=== PATIENT | female | born 1930 | race Caucasian/White ===

== ENCOUNTER 2020-06-22 07:51 | Inpatient (IN) | payer OTHER ==
[~2020-06-22] VITALS: Ht 165.1 cm; Wt 45.4 kg
[2020-06-22] MEDS ORDERED: ELIQUIS2.5 MG (08:23)
[2020-06-22] MEDS ORDERED: LANOXIN125 MCG (08:23)
[2020-06-22] MEDS ORDERED: ARICEPT10 MG (08:24)
[2020-06-22] MEDS ORDERED: LASIX20 MG (08:25)
[2020-06-22] MEDS ORDERED: VALSARTAN80 MG (08:25)
[2020-06-22] MEDS ORDERED: POTASSIUM CHLO20 ME1 (08:25)
[2020-06-22] MEDS ORDERED: HYDRALAZINE HCL25 MG (08:26)
[2020-06-22] MEDS ORDERED: TOPROL XL50 M1 (08:26)
[2020-06-22] MEDS ORDERED: FOLIC ACID0.8 M1 PO (08:26)
[2020-06-24] MEDS ORDERED: SENOKOT-S TABL1 EACH PO (16:12)
[2020-06-24] MEDS ORDERED: FUROSEMIDE20 MG PO (16:12)
[2020-06-24] MEDS ORDERED: OXYC1TAB9 PO (16:12)
[2020-06-24] MEDS ORDERED: LANOXIN125 MCG PO (16:12)
[2020-06-24] MEDS ORDERED: ARICEPT10 MG PO (16:12)
[2020-06-24] MEDS ORDERED: INTEGRA F CAPS1 EACH PO (16:12)
[2020-06-24] MEDS ORDERED: TOPROL XL50 M1 PO (16:12)
[2020-06-24] MEDS ORDERED: HYDRALAZINE HCL25 MG PO (16:12)
[2020-06-24] MEDS ORDERED: AMLODIPINE BESY10 MG PO (16:12)
[2020-06-24] MEDS ORDERED: ELIQUIS2.5 MG PO (16:12)
== END 2020-06-24 18:46 | DRG 470 ==
LOC: ER 07:51 → EDBD 15:29 → SURG 15:29 → SEC-K 15:29 → SURG 20:38
PROVIDERS: ADMIT Orthopaedic Surgery; ATTEND Orthopaedic Surgery
PROC: 0MTM0ZZ Resection of Left Hip Bursa and Ligament, Open Approach (ICD-10-PCS; 2020-06-22)
PROC: 0QU70KZ Supplement Left Upper Femur with Nonautologous Tissue Substitute, Open Approach (ICD-10-PCS; 2020-06-22)
PROC: 0SRS0JZ Replacement of Left Hip Joint, Femoral Surface with Synthetic Substitute, Open Approach (ICD-10-PCS; principal; 2020-06-22 17:15)
DX: S72.032A Displaced midcervical fracture of left femur, initial encounter for closed fracture (principal); M80.052A Age-related osteoporosis with current pathological fracture, left femur, initial encounter for fracture; M16.12 Unilateral primary osteoarthritis, left hip; M70.62 Trochanteric bursitis, left hip; G30.8 Other Alzheimer's disease; F02.80 Dementia in other diseases classified elsewhere, unspecified severity, without behavioral disturbance, psychotic disturbance, mood disturbance, and anxiety; I10 Essential (primary) hypertension; I25.10 Atherosclerotic heart disease of native coronary artery without angina pectoris; I48.91 Unspecified atrial fibrillation